=== PATIENT | female | born 1965 | race Caucasian/White ===

== ENCOUNTER 2016-07-15 14:43 | Outpatient (CLI) | payer OTHER ==
[2016-07-15 16:13] LABS: Methadone Not Detected (NotDetected); Methamphetamine Not Detected (NotDetected)
== END 2016-07-15 14:44 | disposition home or self-care (01) ==
LOC: HPCALD 14:43
PROVIDERS: ATTEND Family Medicine
DX: Z51.81 Encounter for therapeutic drug level monitoring (principal)
CPT/HCPCS: G0478

== ENCOUNTER 2016-10-08 15:24 | Outpatient (CLI) | payer OTHER ==
[2016-10-08 22:31] LABS: Opiate Screen Detected (NotDetected)
[2016-10-08 22:32] LABS: Amphetamine Not Detected (NotDetected); Barbiturates Screen Not Detected (NotDetected); Benzodiazepine Screen Not Detected (NotDetected); Cocaine Metabolite Screen Not Detected (NotDetected); Medtox Control Line Valid? VALID (VALID); Methadone Not Detected (NotDetected); Methamphetamine Not Detected (NotDetected); Oxycodone Screen Not Detected (NotDetected); Phencyclidine (PCP) Not Detected (NotDetected); THC/Cannabinoid Screen Not Detected (NotDetected); Tricyclic Screen Not Detected (NotDetected)
== END 2016-10-08 15:25 | disposition home or self-care (01) ==
LOC: HPCALD 15:24
PROVIDERS: ATTEND Family Medicine
DX: Z51.81 Encounter for therapeutic drug level monitoring (principal)
CPT/HCPCS: 80306

== ENCOUNTER 2017-02-23 15:34 | Outpatient (CLI) | payer OTHER ==
[2017-02-23 16:36] LABS: Amphetamine Not Detected (NotDetected); Barbiturates Screen Not Detected (NotDetected); Benzodiazepine Screen Detected (NotDetected); Cocaine Metabolite Screen Not Detected (NotDetected); Medtox Control Line Valid? VALID (VALID); Methadone Not Detected (NotDetected); Methamphetamine Not Detected (NotDetected); Opiate Screen Not Detected (NotDetected); Oxycodone Screen Not Detected (NotDetected); Phencyclidine (PCP) Not Detected (NotDetected); THC/Cannabinoid Screen Not Detected (NotDetected); Tricyclic Screen Not Detected (NotDetected)
== END 2017-02-23 15:35 | disposition home or self-care (01) ==
LOC: HPCALD 15:34
PROVIDERS: ATTEND Family Medicine
DX: Z51.81 Encounter for therapeutic drug level monitoring (principal); R30.0 Dysuria; Z79.899 Other long term (current) drug therapy
CPT/HCPCS: 80306; 87086

== ENCOUNTER 2017-11-13 09:40 | Outpatient (CLI) | payer MEDICARE, MEDICAID ==
--- NOTE | 2017-11-13 18:11 | RAD ---
LEFT SHOULDER THREE VIEWS: 11/13/17 No recent fracture or AC joint widening was seen. On one view, there is a question of a slight cortic al irregularity along the inferior aspect of the glenoid fossa and inferior margin of the humeral hea d. This could be from an old injury. The visible adjacent ribs are clear. IMPRESSION: No acute findings. Possible old minimal trauma to the left glenohumeral joint. POS: HOME
== END 2017-11-13 09:41 | disposition home or self-care (01) ==
LOC: BURRAD 09:40
PROVIDERS: ATTEND Family Medicine
DX: M25.512 Pain in left shoulder (principal)

== ENCOUNTER 2022-07-10 21:52 | Emergency (ER) | payer OTHER ==
[2022-07-10] MEDS ORDERED: Acetaminophen 500 MG TAB ONE (22:18)
[2022-07-10 22:50] LABS: #Basophils 0.1 thou/uL (0.0-0.2); #Lymphocytes 1.6 thou/uL (1.20-3.40); #Monocytes 0.2 thou/uL (0.11-0.59); #Neutrophils 4.7 thou/uL (1.40-6.50); %Basophils 1.5 % (0.0-1.0); %Eosinophils 0.6 % (0.0-10.0); %Lymphocytes 24.5 % (21.0-51.0); %Neutrophils 70.4 % (42.0-75.0); Mean Corpuscular HGB CONC 34.2 g/dL (32.0-36.0); Mean Corpuscular Hemoglobin 31.1 pg (27.0-31.0); Mean Corpuscular Volume 91.1 fl (78.0-98.0); Mean Platelet Volume 10.5 fL (7.4-10.4); Platelet Count 120 10x3/uL (130-400); RBC Distribution Width 12.9 % (11.5-14.5); Red Blood Cell (RBC) Count 5.15 mill/uL (4.20-5.40); White Blood Cell (WBC) Count 6.6 10x3/uL (4.8-10.8)
[2022-07-10 23:05] LABS: ALT (SGPT) 13 U/L (8-55); AST (SGOT) 13 U/L (5-34); Albumin 4.3 g/dL (3.5-5.0); Alkaline Phosphatase 72 U/L (40-110); Anion Gap 14 mmol/L (10-20); BUN (Urea Nitrogen) 15 mg/dL (9.8-20.1); Bilirubin, Total 0.5 mg/dL (0.2-1.2); Calc. Creatinine Clearance 0 mL/min (70-130); Calcium 9.6 mg/dL (7.8-10.44); Carbon Dioxide 25 mmol/L (22-29); Chloride 102 mmol/L (98-107); Estimated GFR 77; Globulin 3.6 g/dL (2.4-3.5); Glucose 108 mg/dL (70-105); Potassium 3.7 mmol/L (3.5-5.1); Protein, Total 7.9 g/dL (6.0-8.3); Sodium 137 mmol/L (136-145)
[2022-07-11] MEDS ORDERED: Ondansetron PF 4 MG/2 ML Vial ONE (00:08)
[2022-07-11] MEDS ORDERED: Sodium Chloride 0.9% 2,000 ML ONE (01:24)
== END 2022-07-11 01:20 | disposition home or self-care (01) ==
LOC: BURERS 21:52
DX: B34.9 Viral infection, unspecified (principal); F17.210 Nicotine dependence, cigarettes, uncomplicated
CPT/HCPCS: 71045; 80053; 83605; 85025; 87040; 87804; 96361; 96374; J2405; J7050

== ENCOUNTER 2022-12-30 15:57 | Emergency (ER) | payer MEDICARE, OTHER | END 2022-12-30 17:15 | disposition home or self-care (01) | LOC: BURERS 15:57 | DX: S90.122A Contusion of left lesser toe(s) without damage to nail, initial encounter (principal); F17.210 Nicotine dependence, cigarettes, uncomplicated; W20.8XXA Other cause of strike by thrown, projected or falling object, initial encounter ==

== ENCOUNTER 2023-05-01 21:06 | Emergency (ER) | payer MEDICARE, MEDICAID ==
[2023-05-01] MEDS ORDERED: Dexamethasone 10 MG/ML VIAL ONE (21:30)
[2023-05-01] MEDS ORDERED: Ondansetron PF 4 MG/2 ML Vial ONE (21:30)
[2023-05-01] MEDS ORDERED: Acetaminophen 500 MG TAB ONE (21:30)
[2023-05-01 21:42] LABS: #Basophils 0.2 thou/uL (0.0-0.2); #Eosinphils 0.1 thou/uL (0.0-0.7); #Lymphocytes 3.4 thou/uL (1.20-3.40); #Monocytes 0.8 thou/uL (0.11-0.59); #Neutrophils 7.4 thou/uL (1.40-6.50); %Basophils 1.3 % (0.0-1.0); %Eosinophils 0.6 % (0.0-10.0); %Lymphocytes 28.6 % (21.0-51.0); %Monocytes 7.1 % (0.0-10.0); %Neutrophils 62.4 % (42.0-75.0); Hematocrit 42.8 % (36.0-47.0); Hemoglobin 14.6 g/dL (12.0-16.0); Mean Corpuscular HGB CONC 34.1 g/dL (32.0-36.0); Mean Corpuscular Hemoglobin 30.4 pg (27.0-31.0); Mean Platelet Volume 9.9 fL (7.4-10.4); Platelet Count 238 10x3/uL (130-400); RBC Distribution Width 11.8 % (11.5-14.5); Red Blood Cell (RBC) Count 4.81 mill/uL (4.20-5.40); White Blood Cell (WBC) Count 11.8 10x3/uL (4.8-10.8)
[2023-05-01] MEDS ORDERED: Ipratropium/Albuterol 3 ML NEB ONE (21:44)
[2023-05-01 21:58] LABS: ALT (SGPT) 9 U/L (8-55); AST (SGOT) 11 U/L (5-34); Albumin 3.5 g/dL (3.5-5.0); Alkaline Phosphatase 80 U/L (40-110); Anion Gap 19 mmol/L (10-20); BUN (Urea Nitrogen) 9 mg/dL (9.8-20.1); Bilirubin, Total 0.4 mg/dL (0.2-1.2); Calc. Creatinine Clearance 0 mL/min (70-130); Calcium 9.3 mg/dL (7.8-10.44); Carbon Dioxide 23 mmol/L (22-29); Chloride 101 mmol/L (98-107); Estimated GFR 91; Globulin 3.8 g/dL (2.4-3.5); Glucose 107 mg/dL (70-105); Potassium 3.3 mmol/L (3.5-5.1); Protein, Total 7.3 g/dL (6.0-8.3); Sodium 140 mmol/L (136-145)
[2023-05-01 22:26] LABS: SARS-CoV-2 NAA Rapid Test Not Detected (NotDetected)
[2023-05-01] MEDS ORDERED: cefTRIAXone (ROCEPHIN) 1 GM VIAL ONE (23:34)
== END 2023-05-02 00:06 | disposition home or self-care (01) ==
LOC: BURERS 21:06
DX: J18.0 Bronchopneumonia, unspecified organism (principal); F17.210 Nicotine dependence, cigarettes, uncomplicated; Z20.822 Contact with and (suspected) exposure to COVID-19
CPT/HCPCS: 0240U; 71045; 80053; 83605; 85025; 94640; 96372; 96374; 96375; 99284; 36415; J0696; J1100; J2405; J7620